=== PATIENT | female | born 1975 | race Caucasian/White ===

== ENCOUNTER 2021-01-09 15:21 | Emergency (ER) | payer OTHER, SELFPAY ==
[~2021-01-09] VITALS: Ht 149.9 cm; Wt 99.3 kg
--- NOTE | 2021-01-09 16:12 | NUR ---
PT AMBULATED TO ROOM FROM TRIAGE. PT CO PAIN AND REDNESS TO HER LEFT SHOULDER AFTER GETTING COVID VACCINE 10 DAYS AGO. PT STATED THAT REDNESS HAS GOTTEN WORSE OVER THE PAST COUPLE DAYS. PT ALSO STATED THAT SHE HAS A HISTORY OF AFIB AND WAS SUPPOSED TO GET AN ABLATION, BUT HER INSURANCE WAS DROPPED BY [facility]. PT STATED THAT SHE THINKS SHE CONVERTED TO AFIB A COUPLE TIMES TODAY AND WAS HAVING CP AND SOB DURING THE EVENT. SHE STATED SHE "TOOK AN EXTRA METOPROLOL" AND FELT LIKE THE AFIB WENT AWASY, ALONG WITH HER CP AND SOB. PT IS ON COUMADIN AND HAS NOT HAD HER INR CHECKED RECENTLY DUE TO [facility] NOT TAKING HER INSURANCE. PT IS CURRENTLY TRYING TO GET ESTABLISHED WITH [facility]. PT DENIES ANY CURRENT CP, SOB OR FEVER.
[2021-01-09 17:01] LABS: BASOPHILS % (AUTO) 1 % (0-1); EOSINOPHILS % (AUTO) 3 % (1-7); LYMPHOCYTES % (AUTO) 28 % (22-44); MEAN CORPUSCULAR HEMOGLOBIN 32.5 pg (27.0-34.8); MEAN PLATELET VOLUME 7.9 fL (7.4-10.4); MONOCYTES % (AUTO) 10 % (2-9); NEUTROPHILS % (AUTO) 58 % (42-75); PLATELET COUNT 226 x10^3/uL (130-400); RED BLOOD COUNT 4.59 x10^6/uL (3.82-5.3); RED CELL DISTRIBUTION WIDTH 13.7 % (9.6-15.2)
[2021-01-09 17:05] LABS: ANION GAP 6 mmol/L (5-15); CALCIUM 8.7 mg/dL (8.5-10.1); CHLORIDE 106 mmol/L (98-107); CREATININE 0.62 mg/dL (0.55-1.02); MD NO
[2021-01-09 17:06] LABS: ALANINE AMINOTRANSFERASE 35 U/L (12-78); ALBUMIN 3.4 g/dL (3.4-5.0)
[2021-01-09 17:08] LABS: INTERNATIONAL NORMALIZED RATIO 1.34 (0.93-1.1); PROTHROMBIN TIME 14.3 Seconds (9.6-11.5)
[2021-01-09 17:10] LABS: ALKALINE PHOSPHATASE 107 U/L (45-117); BILIRUBIN,TOTAL 0.6 mg/dL (0.2-1.0); TOTAL PROTEIN 7.2 g/dL (6.4-8.2); TROPONIN I < 0.015 ng/mL (0.000-0.045)
[2021-01-09 17:46] VITALS: BP 152/98
== END 2021-01-09 17:48 | disposition home or self-care (01) ==
LOC: ED 17:40
DX: R07.89 Other chest pain (principal); R06.00 Dyspnea, unspecified; I48.91 Unspecified atrial fibrillation; Z88.3 Allergy status to other anti-infective agents
CPT/HCPCS: 36415; 71045; 80053; 84484; 85025; 85610; 93005; 99285